=== PATIENT | female | born 1950 | race Caucasian/White ===

== ENCOUNTER 2017-01-01 09:09 | Emergency (ER) | payer BC, MEDICARE, OTHER ==
[~2017-01-01] VITALS: Ht 160 cm; Wt 86.4 kg
[2017-01-01 09:12] VITALS: TEMP 97.8
[2017-01-01 09:46] LABS: BASO # 0.2 (0.0-0.2); BASO % 1.9 % (0.0-2.0); EOS # 0.5 (0.0-0.7); EOS % 5.7 % (0-4.0); GRAN # 5.1 (1.4-6.5); GRAN % 64.9 % (42.2-75.2); HEMATOCRIT 39.5 % (37.0-47.0); HEMOGLOBIN 12.9 g/dl (12.5-16.0); LYMPH # 1.5 (1.2-3.4); LYMPH % 19.3 % (20.0-51.0); MEAN CELL VOLUME 86 fl (80.0-100.0); MEAN CORPUSCULAR HEMOGLOBIN 28 pg (27.0-31.0); MEAN CORPUSCULAR HGB CONC 33 g/dl (33.0-37.0); MEAN PLATELET VOLUME 10.8 fl (7.4-10.4); MONO # 0.6 (0.1-0.6); MONO % 7.7 % (1.7-9.3); PLATELET COUNT 262 K/mm3 (130-400); RED BLOOD COUNT 4.57 M/mm3 (4.10-5.30); REDCELL DISTRIBUTION WIDTH-CV 13.4 % (11.5-14.5); WHITE BLOOD COUNT 7.9 K/mm3 (4.8-10.8)
[2017-01-01 10:01] LABS: ADJUSTED CALCIUM 9.5 mg/dL (8.4-10.2); ALANINE AMINOTRANSFERASE 25 U/L (9-52); ALBUMIN 4.2 gm/dL (3.5-5.0); ALKALINE PHOSPHATASE 100 U/L (50-136); ANION GAP 12 mmol/L (7-16); BILIRUBIN,TOTAL 1.4 mg/dL (0.0-1.0); BLOOD UREA NITROGEN 25 mg/dL (7-17); CALCIUM 9.7 mg/dL (8.4-10.2); CARBON DIOXIDE 27 mmol/L (22-30); CHLORIDE 96 mmol/L (98-107); GLUCOSE 243 mg/dL (74-106); LIPASE 108 U/L (23-300); POTASSIUM 3.8 mmol/L (3.4-5.0); SODIUM 135 mmol/L (137-145); TOTAL PROTEIN 7.7 gm/dL (6.4-8.2)
[2017-01-01 10:13] LABS: B-TYPE NATRIURETIC PEPTIDE 250 pg/mL (0-125)
[2017-01-01 10:14] LABS: TROPONIN-I < 0.012 ng/mL (0.000-0.034)
[2017-01-01] MEDS ORDERED: ARAVA 20MG TABL20 MG PO (12:17)
[2017-01-01] MEDS ORDERED: ALDACTONE 25MG25 M1 PO (12:18)
[2017-01-01] MEDS ORDERED: ASPIRIN E.C. 8181 MG PO (12:18)
[2017-01-01] MEDS ORDERED: TOPROL XL200 MG PO (12:18)
[2017-01-01] MEDS ORDERED: PROTONIX 40MG T40 MG PO (12:18)
[2017-01-01] MEDS ORDERED: PRAVACHOL 40MG40 MG PO (12:18)
[2017-01-01] MEDS ORDERED: ZYRTEC 10MG10 MG PO (12:18)
[2017-01-01] MEDS ORDERED: JANUVIA50 MG PO (12:19)
[2017-01-01] MEDS ORDERED: NOVOLOG FLEX100 U/ML SQ (12:19)
[2017-01-01] MEDS ORDERED: AMARYL4 MG PO (12:19)
[2017-01-01] MEDS ORDERED: LANTUS SOLOS100 U/ML SQ (12:19)
[2017-01-01] MEDS ORDERED: ULTRAM 50MG TAB50 MG PO (12:20)
[2017-01-01] MEDS ORDERED: LASIX 20MG TABL20 MG PO (12:20)
[2017-01-01] MEDS ORDERED: MASON NATURAL2000 IU (12:20)
[2017-01-01] MEDS ORDERED: DITROPAN XL 5MG5 M1 PO (12:20)
[2017-01-01] MEDS ORDERED: NATURAL IRON65 MG (12:21)
[2017-01-01] MEDS ORDERED: EPA FISH OIL1 SGL PO (12:21)
[2017-01-01] MEDS ORDERED: MICARDIS HCT 121 TA1 PO (12:22)
[2017-01-01] MEDS ORDERED: NEXIUM 40MG40 MG PO (12:25)
[2017-01-01 14:57] VITALS: BP 146/69; PULSE 68
== END 2017-01-01 15:27 | disposition short-term general hospital (02) ==
LOC: COL.ER 09:09
PROVIDERS: Emergency Medicine
DX: I21.4 Non-ST elevation (NSTEMI) myocardial infarction (principal); E11.9 Type 2 diabetes mellitus without complications; I10 Essential (primary) hypertension; Z79.4 Long term (current) use of insulin
CPT/HCPCS: J1644; J2270; J2405

== ENCOUNTER → 2017-02-16 | Outpatient (CLI) | payer BC, MEDICARE, OTHER ==
[~2017-02-16] MED LIST: ALDACTONE 25MG25 M1 PO; AMARYL4 MG PO; ARAVA 20MG TABL20 MG PO; ASPIRIN E.C. 8181 MG PO; DITROPAN XL 5MG5 M1 PO; EPA FISH OIL1 SGL PO; JANUVIA50 MG PO; LANTUS SOLOS100 U/ML SQ; LASIX 20MG TABL20 MG PO; MASON NATURAL2000 IU; MICARDIS HCT 121 TA1 PO; NATURAL IRON65 MG; NEXIUM 40MG40 MG PO; NOVOLOG FLEX100 U/ML SQ; PRAVACHOL 40MG40 MG PO; PROTONIX 40MG T40 MG PO; TOPROL XL200 MG PO; ULTRAM 50MG TAB50 MG PO; ZYRTEC 10MG10 MG PO
[2017-02-16 10:29] LABS: BASO # 0.1 (0.0-0.2); BASO % 1.8 % (0.0-2.0); EOS # 0.2 (0.0-0.7); EOS % 3.2 % (0-4.0); GRAN # 5.5 (1.4-6.5); GRAN % 72.5 % (42.2-75.2); LYMPH # 0.9 (1.2-3.4); LYMPH % 11.6 % (20.0-51.0); MEAN CELL VOLUME 89 fl (80.0-100.0); MEAN CORPUSCULAR HGB CONC 31 g/dl (33.0-37.0); MEAN PLATELET VOLUME 10.6 fl (7.4-10.4); MONO # 0.8 (0.1-0.6); MONO % 10.4 % (1.7-9.3); PLATELET COUNT 279 K/mm3 (130-400); RED BLOOD COUNT 3.33 M/mm3 (4.10-5.30); WHITE BLOOD COUNT 7.6 K/mm3 (4.8-10.8)
[2017-02-16 10:30] LABS: HEMATOCRIT 29.5 % (37.0-47.0); MEAN CORPUSCULAR HEMOGLOBIN 27 pg (27.0-31.0)
[2017-02-16 10:43] LABS: ADJUSTED CALCIUM 9.2 mg/dL (8.4-10.2); ALBUMIN 3.3 gm/dL (3.5-5.0); BILIRUBIN,TOTAL 0.7 mg/dL (0.0-1.0); C-REACTIVE PROTEIN 3.6 mg/dL (0.0-0.9); CALCIUM 8.6 mg/dL (8.4-10.2); CREATININE, serum 1.96 mg/dL (0.52-1.25)
== END ==
LOC: ZCOL.LAB 10:14
PROVIDERS: Thoracic Surgery (Cardiothoracic Vascular Surgery)
DX: T81.4XXA Infection following a procedure, initial encounter (principal); E87.79 Other fluid overload

== ENCOUNTER → 2017-02-22 | Outpatient (CLI) | payer BC, MEDICARE, OTHER ==
[2017-02-22 12:36] LABS: BASO # 0.1 (0.0-0.2); BASO % 1.5 % (0.0-2.0); EOS # 0.7 (0.0-0.7); EOS % 9.3 % (0-4.0); GRAN # 4.4 (1.4-6.5); GRAN % 60.6 % (42.2-75.2); HEMATOCRIT 31.1 % (37.0-47.0); HEMOGLOBIN 9.3 g/dl (12.5-16.0); LYMPH # 1.4 (1.2-3.4); LYMPH % 18.5 % (20.0-51.0); MEAN CELL VOLUME 89 fl (80.0-100.0); MEAN CORPUSCULAR HEMOGLOBIN 26 pg (27.0-31.0); MEAN CORPUSCULAR HGB CONC 30 g/dl (33.0-37.0); MEAN PLATELET VOLUME 10.2 fl (7.4-10.4); MONO # 0.7 (0.1-0.6); MONO % 9.7 % (1.7-9.3); PLATELET COUNT 335 K/mm3 (130-400); RED BLOOD COUNT 3.51 M/mm3 (4.10-5.30); WHITE BLOOD COUNT 7.3 K/mm3 (4.8-10.8)
[2017-02-22 12:43] LABS: ADJUSTED CALCIUM 9.2 mg/dL (8.4-10.2); ALBUMIN 3.4 gm/dL (3.5-5.0); BILIRUBIN,TOTAL 0.6 mg/dL (0.0-1.0); C-REACTIVE PROTEIN 3.4 mg/dL (0.0-0.9); CALCIUM 8.7 mg/dL (8.4-10.2); CREATININE, serum 1.99 mg/dL (0.52-1.25); POTASSIUM 3.6 mmol/L (3.4-5.0); TOTAL PROTEIN 7.1 gm/dL (6.4-8.2)
== END ==
LOC: ZCOL.LAB 12:19
PROVIDERS: Thoracic Surgery (Cardiothoracic Vascular Surgery)
DX: T81.4XXA Infection following a procedure, initial encounter (principal); N17.9 Acute kidney failure, unspecified; I50.9 Heart failure, unspecified; E87.70 Fluid overload, unspecified; N18.9 Chronic kidney disease, unspecified; Z95.1 Presence of aortocoronary bypass graft

== ENCOUNTER → 2017-03-01 | Outpatient (CLI) | payer BC, MEDICARE, OTHER ==
[2017-03-01 12:21] LABS: BASO # 0.1 (0.0-0.2); BASO % 1.6 % (0.0-2.0); EOS # 0.5 (0.0-0.7); EOS % 7.2 % (0-4.0); GRAN # 4.6 (1.4-6.5); GRAN % 61.8 % (42.2-75.2); LYMPH # 1.3 (1.2-3.4); MEAN CELL VOLUME 87 fl (80.0-100.0); MEAN CORPUSCULAR HGB CONC 31 g/dl (33.0-37.0); MEAN PLATELET VOLUME 10.7 fl (7.4-10.4); MONO # 0.8 (0.1-0.6); PLATELET COUNT 283 K/mm3 (130-400); RED BLOOD COUNT 3.43 M/mm3 (4.10-5.30); WHITE BLOOD COUNT 7.4 K/mm3 (4.8-10.8)
[2017-03-01 12:22] LABS: HEMATOCRIT 29.8 % (37.0-47.0); HEMOGLOBIN 9.3 g/dl (12.5-16.0); MEAN CORPUSCULAR HEMOGLOBIN 27 pg (27.0-31.0)
[2017-03-01 12:32] LABS: ADJUSTED CALCIUM 9.4 mg/dL (8.4-10.2); ALBUMIN 3.3 gm/dL (3.5-5.0); BILIRUBIN,TOTAL 0.6 mg/dL (0.0-1.0); C-REACTIVE PROTEIN 5.4 mg/dL (0.0-0.9); CALCIUM 8.8 mg/dL (8.4-10.2); CREATININE, serum 1.67 mg/dL (0.52-1.25); POTASSIUM 3.4 mmol/L (3.4-5.0); TOTAL PROTEIN 6.9 gm/dL (6.4-8.2)
== END ==
LOC: ZCOL.LAB 12:13
PROVIDERS: Thoracic Surgery (Cardiothoracic Vascular Surgery)
DX: T81.4XXA Infection following a procedure, initial encounter (principal); N17.9 Acute kidney failure, unspecified; N18.9 Chronic kidney disease, unspecified; I50.9 Heart failure, unspecified; Z95.1 Presence of aortocoronary bypass graft

== ENCOUNTER → 2019-01-12 | Outpatient (CLI) | payer BC, MEDICARE, OTHER | LOC: COL.VAS 01-11 11:15 | DX: M54.2 Cervicalgia (principal) ==

== ENCOUNTER 2020-06-04 12:54 | Inpatient (IN) | payer BC, MEDICARE, OTHER ==
[~2020-06-04] VITALS: Ht 160 cm; Wt 75.1 kg
[2020-06-04 14:12] LABS: BASO # 0.1 (0.0-0.2); BASO % 0.7 % (0.0-2.0); EOS # 0.1 (0.0-0.7); EOS % 0.8 % (0-4.0); GRAN # 5.9 (1.4-6.5); GRAN % 82.4 % (42.2-75.2); HEMATOCRIT 37.8 % (37.0-47.0); HEMOGLOBIN 11.7 g/dl (12.5-16.0); LYMPH # 0.8 (1.2-3.4); LYMPH % 10.8 % (20.0-51.0); MEAN CELL VOLUME 88 fl (80.0-100.0); MEAN CORPUSCULAR HEMOGLOBIN 27 pg (27.0-31.0); MEAN CORPUSCULAR HGB CONC 31 g/dl (33.0-37.0); MONO # 0.4 (0.1-0.6); MONO % 4.9 % (1.7-9.3); PLATELET COUNT 335 K/mm3 (130-400); RED BLOOD COUNT 4.31 M/mm3 (4.10-5.30)
[2020-06-04 14:33] LABS: TROPONIN-I 0.029 ng/mL (0.000-0.035)
[2020-06-04 14:48] LABS: COLLECTION METHOD CLEAN CATCH
[2020-06-04 14:55] LABS: MUCOUS Present /lpf; PH 5 (5-8); SQUAMOUS EPITHELIAL 0-2 /hpf; URINE APPEARANCE Clear; URINE BACTERIA Rare /hpf; URINE BILIRUBIN Negative (NEGATIVE); URINE BLOOD 2+ (NEGATIVE); URINE COLOR Yellow; URINE GLUCOSE Negative (NEGATIVE); URINE KETONE Negative (NEGATIVE); URINE LEUKOCYTE ESTERASE Negative (NEGATIVE); URINE NITRATE Negative (NEGATIVE); URINE PROTEIN(semi-quant) 2+ (NEGATIVE); URINE UROBILINOGEN Negative (NEGATIVE)
[2020-06-04 15:47] LABS: BILIRUBIN,TOTAL 1.4 mg/dL (0.0-1.0); CALCIUM 9.6 mg/dL (8.4-10.2); CREATININE, serum 2.15 (0.52-1.25); POTASSIUM 3.7 mmol/L (3.4-5.0); TOTAL PROTEIN 8.4 gm/dL (6.4-8.2)
[2020-06-04 16:00] VITALS: BP 150/96; PULSE 87; TEMP 98.1
[2020-06-04] MEDS ORDERED: SYNTHROID0.05 MG/TA PO (16:01)
[2020-06-04] MEDS ORDERED: PROTONIX 40MG T40 MG PO (16:32)
[2020-06-04 18:12] VITALS: BP 150/96; PULSE 87; TEMP 98.1
--- NOTE | 2020-06-04 19:28 | NUR ---
Assessment completed, alert/oriented, vital signs stable, denies pain, reports cough/ no sputum observed and tesslon negra given, lungs CTA/ diminished LLL, she is on room air and O2 sats are WNL, heart RRR/SR on tele, sekou eduardo for elevated BNP with hx of CHF, she is sitting up eating supper, denies other needs
[2020-06-04 20:08] VITALS: BP 147/74; PULSE 87; TEMP 97.9
--- NOTE | 2020-06-04 21:30 | NUR ---
Patient assessed at this time. Alert and oriented x 4, and able to make needs known. Denies having pain and discomfort at this time. Peripheral INT to left AC. Denies SOB and dypsnea. On room air. Capillary refill less than 3 seconds. Non-tenting skin turgor. BSAx4. Abdomen soft and non-tender. 1+ edema BLE. Voices no questions, needs, or concerns at this time. Resting in bed with call light within reach.
[2020-06-05 00:04] VITALS: BP 153/79; PULSE 77; TEMP 97.5
[2020-06-05 02:47] VITALS: BP 130/66; PULSE 68; TEMP 97.6
--- NOTE | 2020-06-05 05:18 | NUR ---
Patient has denied having pain and discomfort this shift. Voices no questions, needs, or concerns at this time. Resting in bed with call light within reach.
[2020-06-05 09:00] VITALS: BP 128/78; PULSE 98; TEMP 98.7
--- NOTE | 2020-06-05 09:07 | NUR ---
PT IS SITTING UP IN RECLINER EATING BREAKFAST. PT STATES SHE IS GETTING CLAUSTROPHOBIC IN HER ROOM. THIS RN OPENED THE BLINDS, AND SHE STATES THAT IT FEELS A LOT BETTER. GAVE PATIENT MEDICATIONS, AND DID ASSESSMENT. ALL VSS. NO CONCERNS AT THIS TIME. CALL LIGHT WITHIN REACH.
[2020-06-05 09:17] LABS: HEMATOCRIT 39.9 % (37.0-47.0); HEMOGLOBIN 12.6 g/dl (12.5-16.0); MEAN CELL VOLUME 87 fl (80.0-100.0); MEAN CORPUSCULAR HEMOGLOBIN 27 pg (27.0-31.0); MEAN CORPUSCULAR HGB CONC 32 g/dl (33.0-37.0); MEAN PLATELET VOLUME 11.5 fl (7.4-10.4); PLATELET COUNT 335 K/mm3 (130-400); RED BLOOD COUNT 4.61 M/mm3 (4.10-5.30); REDCELL DISTRIBUTION WIDTH-CV 14.1 % (11.5-14.5)
[2020-06-05 09:29] LABS: ALBUMIN 4.2 gm/dL (3.5-5.0); BILIRUBIN,TOTAL 1.8 mg/dL (0.0-1.0); CALCIUM 9.8 mg/dL (8.4-10.2); CREATININE, serum 2.49 (0.52-1.25); POTASSIUM 3.3 mmol/L (3.4-5.0); TOTAL PROTEIN 8.6 gm/dL (6.4-8.2)
[2020-06-05 09:50] LABS: TROPONIN-I 0.049 ng/mL (0.000-0.035)
--- NOTE | 2020-06-05 11:22 | NUR ---
Chaplain randolph for patient while standing outside the door.
--- NOTE | 2020-06-05 12:00 | NUR ---
Consults called. Both Dr. Cook and Dr. Huffman have been notified, and are going to come see this patient today. Dr. Gee is currently at bedside to see the patient.
--- NOTE | 2020-06-05 13:08 | NUR ---
[facility] contacted patient by phone to complete intake. Patient lives alone in [place] and sees Dr. Burns for primary care. Patient obtains medications from [facility] with no difficulties. Patient has a cane and walker at home but does not use them normally. Patient reports independence with ADLS and plans to return home upon discharge. Patient reports she has DPOA-HC completed, however SW did not locate copy in EMR. Patient states it designates her son, Joel (ph#[phone]) and her sister. Patient reports Joel is her only child. ERIN collaborated with RNLilo who advised patient has been independent in her room. ERIN also contacted patient's son, Joel to review discharge plan. Joel's only concern was if patient was still infectious. ERIN will continue to follow.
[2020-06-05 13:15] VITALS: BP 132/84; PULSE 87; TEMP 97.9
[2020-06-05 14:35] LABS: URINE PROTEIN:CREAT RATIO 1.71 (0.00-0.14)
[2020-06-05 17:51] VITALS: BP 136/86; PULSE 90; TEMP 97.5
[2020-06-05 21:04] VITALS: BP 118/72; PULSE 78; TEMP 97.5
[2020-06-06 00:11] VITALS: BP 148/96; PULSE 75; TEMP 97.5
--- NOTE | 2020-06-06 03:53 | NUR ---
PT VERY PLEASANT AND COOPERATIVE. ALERT AND ORIENTATED X4. INT TO L AC FLUSHED WITH 5ML NS WITH NO DIFFICULTY. PT ON ROOM AIR WITH SATS AT 90-96%. BECOMES SHORT OF AIR WITH EXERTION. OCCASIONAL COUGH. TELE ON WITH SR. RECEIVES HEPARIN FOR VTE. ACCU CHECK AT HS WAS 123. REMAINS IN DROPLET ISOLATION FOR COVID. CALL LIGHT WITHIN REACH. WILL CONINUE TO MONITOR.
[2020-06-06 05:11] VITALS: BP 124/72; PULSE 74; TEMP 97.5
[2020-06-06 08:00] VITALS: BP 128/78; PULSE 86; TEMP 97.6
--- NOTE | 2020-06-06 08:00 | NUR ---
Patient laying in bed watching TV, A&Ox4. Denies SOB, only reports when taking a deep breath and coughing. VSS. IV CDI. Droplet precautions in place. No further needs expressed from the patient. Patient is hoping to go home today. Call light within reach
[2020-06-06 09:37] LABS: BASO # 0.1 (0.0-0.2); BASO % 0.9 % (0.0-2.0); EOS # 0.2 (0.0-0.7); EOS % 2.9 % (0-4.0); GRAN # 4.6 (1.4-6.5); GRAN % 66.3 % (42.2-75.2); HEMOGLOBIN 11.5 g/dl (12.5-16.0); LYMPH # 1.3 (1.2-3.4); LYMPH % 19.1 % (20.0-51.0); MEAN CELL VOLUME 86 fl (80.0-100.0); MEAN CORPUSCULAR HEMOGLOBIN 28 pg (27.0-31.0); MEAN CORPUSCULAR HGB CONC 32 g/dl (33.0-37.0); MEAN PLATELET VOLUME 10.8 fl (7.4-10.4); MONO # 0.7 (0.1-0.6); MONO % 10.1 % (1.7-9.3); PLATELET COUNT 402 K/mm3 (130-400); RED BLOOD COUNT 4.18 M/mm3 (4.10-5.30); REDCELL DISTRIBUTION WIDTH-CV 14.3 % (11.5-14.5)
[2020-06-06 09:46] LABS: CALCIUM 7.7 mg/dL (8.4-10.2); CREATININE, serum 2.42 (0.52-1.25); POTASSIUM 4.3 mmol/L (3.4-5.0)
[2020-06-06 12:24] VITALS: BP 136/72; PULSE 85; TEMP 97.8
[2020-06-06] MEDS ORDERED: LASIX 20MG TABL20 MG PO (12:38)
--- NOTE | 2020-06-06 13:45 | NUR ---
Patient taken by wheelchair to ER entrance, picking the patient up. Discharge paperwork reviewed with the patient. Patient verbalized an understanding to follow doctors orders and [facility] guidelines for covid. IV removed, tip intact, patient tolerated well. Gauze and coban applied. Discharge paperwork and personal belongings with the patient. No further needs expressed from the patient.
== END 2020-06-06 13:45 | disposition home or self-care (01) | DRG 177 ==
LOC: COL.ER 12:54 → PEDS 15:55 → COL.ER 15:55 → PEDS 06-06 01:49
PROVIDERS: Emergency Medicine; Hospitalist; Internal Medicine Nephrology; Nurse Practitioner Primary Care; Physician Assistant; ADMIT Student in an Organized Health Care Education/Training Program
DX: U07.1 COVID-19 (principal); J12.89 Other viral pneumonia; I21.A1 Myocardial infarction type 2; I50.23 Acute on chronic systolic (congestive) heart failure; I13.0 Hypertensive heart and chronic kidney disease with heart failure and stage 1 through stage 4 chronic kidney disease, or unspecified chronic kidney disease; N17.9 Acute kidney failure, unspecified; N18.4 Chronic kidney disease, stage 4 (severe); M06.9 Rheumatoid arthritis, unspecified; E03.9 Hypothyroidism, unspecified; J45.909 Unspecified asthma, uncomplicated; I25.10 Atherosclerotic heart disease of native coronary artery without angina pectoris; E11.21 Type 2 diabetes mellitus with diabetic nephropathy; E78.5 Hyperlipidemia, unspecified; K21.9 Gastro-esophageal reflux disease without esophagitis; D63.1 Anemia in chronic kidney disease; E11.22 Type 2 diabetes mellitus with diabetic chronic kidney disease; Z79.4 Long term (current) use of insulin; Z95.1 Presence of aortocoronary bypass graft; Z88.2 Allergy status to sulfonamides
CPT/HCPCS: 99222-AI; 99232-AI; 99239; J1644; J1815; J1940

== ENCOUNTER 2021-12-08 16:55 | Inpatient (IN) | payer MEDICARE, OTHER ==
[~2021-12-08] VITALS: Ht 160 cm; Wt 76.4 kg
[~2021-12-08 16:55] MED LIST changes: -DITROPAN 5MG TAB5 MG PO; -FLONASEALLERGY NS; -OMEGA-3 FISH1000 MG PO; -PROVENTIL0.09 MG/A1 IH; -REFRESH PLUS 00.4 M1 OP; -REPATHA SU140 MG/1 M SQ; -SINGULAIR 110 MG/TAB PO; -SYMMETREL100 MG PO; -VITAMIN B122500 MCG SL; -ZETIA 10MG TAB10 MG PO
[2021-12-08 17:07] VITALS: BP 157/79; PULSE 81; TEMP 98.2
[2021-12-08] MEDS ORDERED: FLONASEALLERGY NS (17:59)
[2021-12-08] MEDS ORDERED: REFRESH PLUS 00.4 M1 OP (18:00)
[2021-12-08] MEDS ORDERED: REPATHA SU140 MG/1 M SQ (18:01)
[2021-12-08] MEDS ORDERED: PROVENTIL0.09 MG/A1 IH (18:03)
[2021-12-08] MEDS ORDERED: VITAMIN B122500 MCG SL (18:04)
[2021-12-08] MEDS ORDERED: SINGULAIR 110 MG/TAB PO (18:05)
[2021-12-08] MEDS ORDERED: OMEGA-3 FISH1000 MG PO (18:06)
[2021-12-08] MEDS ORDERED: ZETIA 10MG TAB10 MG PO (18:06)
[2021-12-08] MEDS ORDERED: DITROPAN 5MG TAB5 MG PO (18:09)
--- NOTE | 2021-12-08 18:23 | NUR ---
Pt arrived to floor accompanied by family. Oriented to unit and all questions answered. AOx4. All vitals stable at this time. Will continue to monitor.
[2021-12-08 18:46] LABS: BASO # 0.2 K/mm3 (0.0-0.2); BASO % 1.4 % (0.0-2.0); EOS # 0.1 K/mm3 (0.0-0.7); GRAN # 10.3 K/mm3 (1.4-6.5); GRAN % 78.7 % (42.2-75.2); HEMOGLOBIN 10.5 g/dl (12.5-16.0); LYMPH # 1.5 K/mm3 (1.2-3.4); LYMPH % 11.4 % (20.0-51.0); MEAN CELL VOLUME 83 fl (80.0-100.0); MEAN CORPUSCULAR HEMOGLOBIN 26 pg (27-31); MEAN CORPUSCULAR HGB CONC 32 g/dl (33.0-37.0); MEAN PLATELET VOLUME 10.7 fl (7.4-10.4); MONO # 0.9 K/mm3 (0.1-0.6); MONO % 7.1 % (1.7-9.3); PLATELET COUNT 327 K/mm3 (130-400); RED BLOOD COUNT 3.97 M/mm3 (4.10-5.30); REDCELL DISTRIBUTION WIDTH-CV 14.8 % (11.5-14.5)
[2021-12-08 18:51] LABS: HEMATOCRIT 33.1 % (37.0-47.0)
[2021-12-08 19:06] LABS: BILIRUBIN,TOTAL 1.3 mg/dL (0.2-1.2); CALCIUM 9.2 mg/dL (8.4-10.2); CREATININE, serum 2.79 mg/dL (0.57-1.11); MAGNESIUM 2.1 mg/dL (1.6-2.6); POTASSIUM 3.5 mmol/L (3.5-4.5); TOTAL PROTEIN 7.5 gm/dL (6.2-8.1)
[2021-12-08 19:50] VITALS: BP 155/84; PULSE 73; TEMP 97.7
[2021-12-08 19:59] LABS: PARTIAL THROMBOPLASTIN TIME 31.5 SECONDS (26.0-37.0)
[2021-12-08 20:20] LABS: COLLECTION METHOD CLEAN CATCH
[2021-12-08 20:26] LABS: MUCOUS Present (NOT PRESENT); PH 5 (5-8); URINE APPEARANCE Hazy (CLEAR/HAZY); URINE BACTERIA Rare /hpf (NONE SEEN); URINE BILIRUBIN Negative (NEGATIVE); URINE BLOOD 2+ (NEGATIVE); URINE COLOR Yellow (YELLOW); URINE GLUCOSE Negative (NEGATIVE); URINE KETONE Negative (NEGATIVE); URINE LEUKOCYTE ESTERASE Negative (NEGATIVE); URINE NITRATE Negative (NEGATIVE); URINE PROTEIN(semi-quant) 2+ (NEGATIVE); URINE RBC 0-2 /hpf (0-2); URINE UROBILINOGEN Negative (NEGATIVE)
[2021-12-09] VITALS (8 sets, daily range): BP systolic 118–158; BP diastolic 63–79; PULSE 41–88; TEMP 97.5–98
--- NOTE | 2021-12-09 00:45 | NUR ---
Report received, pt eating her evening meal at that time. Assessment completed, pt is A&Ox4. Orders received and medications admininstered per eMAR. Fluid restriction in place of 1500ml. Pt has no complaints of main thus far this shift. All other needs met at this time, call light within reach.
--- NOTE | 2021-12-09 00:49 | NUR ---
Critical troponin level of 2.826 called in by lab at 1930. Hospitalist notified. Secondary critical troponin level of 2.886 called in by lab at 2152. Hospitalist notified again.
[2021-12-09 04:16] LABS: BASO # 0.2 K/mm3 (0.0-0.2); BASO % 1.5 % (0.0-2.0); EOS # 0.2 K/mm3 (0.0-0.7); GRAN # 8.2 K/mm3 (1.4-6.5); GRAN % 74.4 % (42.2-75.2); HEMOGLOBIN 10.1 g/dl (12.5-16.0); LYMPH # 1.6 K/mm3 (1.2-3.4); LYMPH % 14.2 % (20.0-51.0); MEAN CELL VOLUME 84 fl (80.0-100.0); MEAN CORPUSCULAR HEMOGLOBIN 26 pg (27-31); MEAN CORPUSCULAR HGB CONC 32 g/dl (33.0-37.0); MEAN PLATELET VOLUME 10.7 fl (7.4-10.4); MONO # 0.8 K/mm3 (0.1-0.6); MONO % 7.4 % (1.7-9.3); PLATELET COUNT 289 K/mm3 (130-400); RED BLOOD COUNT 3.83 M/mm3 (4.10-5.30); REDCELL DISTRIBUTION WIDTH-CV 14.9 % (11.5-14.5)
[2021-12-09 04:20] LABS: HEMATOCRIT 32.1 % (37.0-47.0)
[2021-12-09 04:28] LABS: CREATININE, serum 2.77 mg/dL (0.57-1.11); POTASSIUM 3.5 mmol/L (3.5-4.5)
--- NOTE | 2021-12-09 05:36 | NUR ---
Pts 0400 glucose reading was 63, hypoglycemic protocol was initiated. Pt received medication per EMAR. Blood glucose was taken 15 minutes after dextrose administration and was brought up to 139. Pt has no complaints at this time and denies pain. Call light within reach.
--- NOTE | 2021-12-09 09:10 | NUR ---
PT SITTING UP IN BED ON ROOM AIT. PT STATES NO SOB OR PAIN AT THIS TIME. "I JUST WANT TO EAT SOMETHING." PT REMAINS NPO INCASE ANY PROCEDURES NEED TO BE DONE. PT VOICES UNDERSTANDING. PT STATES NO OTHER NEEDS/CONCERNS AT THIS TIME. "I GUESS ILL JUST WAIT UNTIL THEY FIGURE OUT WHAT THEY ARE GOING TO DO WITH ME." CALL LIGHT IS WITHIN REACH.
--- NOTE | 2021-12-09 10:10 | NUR ---
Job Interviewer met with patient to discuss discharge planning. Patient lives in [place] and sees Dr. Burns for primary care. Patient obtains medications from [facility] or [facility]. Patient does not normally use DME however she advised she recently purchased a cane. Patient reports independence with ADLS and plans to return home at time of discharge. Patient reports her DPOA-HC is her son, Joel (ph#[phone]). Discharge Plan: Home
[2021-12-09] MEDS ORDERED: SYMMETREL100 MG PO (13:29)
--- NOTE | 2021-12-09 13:30 | NUR ---
PT OFF FLOOR FOR SCAN
[2021-12-09] MEDS ORDERED: LASIX 20MG TABL20 MG PO (13:42)
[2021-12-09] MEDS ORDERED: ASPIRIN E.C. 8181 MG PO (13:46)
--- NOTE | 2021-12-09 14:42 | NUR ---
PT RETURNED TO ROOM
--- NOTE | 2021-12-09 19:11 | NUR ---
PT SITTING UP IN BEDSIDE CHAIR. PT STATES NO PAIN OR SOB AT THIS TIME. NO CONCERNS/NEEDS VOICED AT THIS TIME. CALL LIGHT IS WITHIN REACH.
--- NOTE | 2021-12-09 21:35 | NUR ---
Patient assessed around 1999. Alert and oriented, and able to make needs known. Denies having pain and discomfort. Did complain of dry cough, and given PRN Robitussin as ordered. PICC to [facility], with Heparin drip running per orders. Rechecka t 2200. Reports some SOB with exertion. LS CTA in upper lobes, diminished in lower. HRR. Telemetry in place. BSAx4. 1+ edema BLE. Voices no questions, needs, or concerns at this time. In bed with call light within reach. Bed alarm on.
[2021-12-10 04:37] VITALS: BP 137/75; PULSE 60; TEMP 97.6
[2021-12-10 05:21] LABS: BASO # 0.2 K/mm3 (0.0-0.2); BASO % 1.7 % (0.0-2.0); EOS # 0.4 K/mm3 (0.0-0.7); EOS % 3.5 % (0.0-4.0); GRAN # 7.4 K/mm3 (1.4-6.5); HEMOGLOBIN 10.6 g/dl (12.5-16.0); LYMPH # 1.4 K/mm3 (1.2-3.4); LYMPH % 14.1 % (20.0-51.0); MEAN CELL VOLUME 84 fl (80.0-100.0); MEAN CORPUSCULAR HEMOGLOBIN 26 pg (27-31); MEAN CORPUSCULAR HGB CONC 31 g/dl (33.0-37.0); MEAN PLATELET VOLUME 10.9 fl (7.4-10.4); MONO # 0.7 K/mm3 (0.1-0.6); MONO % 7.3 % (1.7-9.3); PLATELET COUNT 312 K/mm3 (130-400); RED BLOOD COUNT 4.04 M/mm3 (4.10-5.30); REDCELL DISTRIBUTION WIDTH-CV 14.9 % (11.5-14.5)
--- NOTE | 2021-12-10 05:35 | NUR ---
Continues on Heparin drip per orders. Dosing changed twice this shift per protocol. Recheck HepXa at 1130. Denies having pain and discomfort. Voices no questions, needs, or concerns at this time. In bed with call light within reach.
[2021-12-10 05:42] LABS: CREATININE, serum 2.87 mg/dL (0.57-1.11); MAGNESIUM 1.9 mg/dL (1.6-2.6); POTASSIUM 3.5 mmol/L (3.5-4.5)
[2021-12-10 05:50] LABS: TROPONIN-I 2.115 ng/mL (0.00-0.033)
[2021-12-10 07:24] VITALS: BP 133/68; PULSE 57; TEMP 97.6
[2021-12-10 11:34] VITALS: BP 125/59; PULSE 63; TEMP 97.8
[2021-12-10 15:18] VITALS: BP 145/68; PULSE 68; TEMP 97.5
[2021-12-10 19:54] VITALS: BP 118/70; PULSE 69; TEMP 97.7
--- NOTE | 2021-12-10 20:57 | NUR ---
PREVIOUS NURSE DID NOT CHANGE THE HEP XA VALUE IN THE COMPUTER WHEN THEY CHANGED IT ON THE PUMP, SO THE CORRECT VALUE RUNNING WAS NOT CORRECT IN THE COMPUTER. THE PUMP WAS RUNNING AT 11.5 UNITS/HR, BUT THE COMPUTER VALUE WAS NEVER CHANGED AND LEFT AT 12.5 UNITS/HR. I VERIFIED THE LAB VALUES AND CHANGED THE RATE BASED OFF OF THE HEP XA AND THE 11.5 VALUE THAT WAS RUNNING. THE HEP XA WAS TO BE INCREASED BY 1.5 UNITS/HR, SO INCREASED THE RATE TO 13 UNITS/HR WITH THE SUPERVISION AND SECOND NURSE VERIFICATION OF THE CHARGE NURSE.
[2021-12-10 23:56] VITALS: BP 150/73; PULSE 63; TEMP 97.8
[2021-12-11] VITALS (11 sets, daily range): BP systolic 125–165; BP diastolic 64–90; PULSE 57–70; TEMP 97.4–97.6
--- NOTE | 2021-12-11 02:14 | NUR ---
Pt alert and oriented, follows commands, resting quietly. Denies chest pain/SOB. Denies abdominal pain. Afebrile. Enforcing NPO 0000. secured entrance monitor remains on. Shift assessment performed. Medications administered per orders and education provided. VS stable. Pt on room air. BP stable. 1+ BLE edema noted. No significant skin issues. Lung sounds clear and diminished bilaterally. No crackles noted. Hep gtt continuing, currently at 13 ml/hr. See previous note regarding issue with rate not being changed in computer. Next Hep Xa at 0250. Will continue to assess rate. Pt currently in NSR. Tolerating PO, now NPO since 0000. FSBS 113. Pt does not report any questions at this time, will continue to monitor.
--- NOTE | 2021-12-11 04:50 | NUR ---
No adverse events overnight. Pt alert and oriented. Denies chest pain/SOB. BLE edema remains 1+. VS stable. Pt on room air. Heparin gtt continuing, now at 12 ml/hr. Pt NPO since 0000. PICC line in CARLA clean/dry/intact. HR NSR. Continuing 1500 FR and closely monitoring I&O. Pt has had adequate urine output overnight. Pt does not report any questions at this time, chilango continue to monitor.
[2021-12-11 11:04] LABS: BASO # 0.1 K/mm3 (0.0-0.2); BASO % 1.4 % (0.0-2.0); EOS # 0.2 K/mm3 (0.0-0.7); EOS % 2.2 % (0.0-4.0); GRAN # 8.2 K/mm3 (1.4-6.5); GRAN % 78.6 % (42.2-75.2); HEMOGLOBIN 11.5 g/dl (12.5-16.0); LYMPH # 1.2 K/mm3 (1.2-3.4); LYMPH % 11.3 % (20.0-51.0); MEAN CELL VOLUME 83 fl (80.0-100.0); MEAN CORPUSCULAR HEMOGLOBIN 26 pg (27-31); MEAN CORPUSCULAR HGB CONC 32 g/dl (33.0-37.0); MEAN PLATELET VOLUME 10.6 fl (7.4-10.4); MONO # 0.6 K/mm3 (0.1-0.6); MONO % 6.2 % (1.7-9.3); PLATELET COUNT 333 K/mm3 (130-400); RED BLOOD COUNT 4.36 M/mm3 (4.10-5.30); REDCELL DISTRIBUTION WIDTH-CV 14.9 % (11.5-14.5)
[2021-12-11 11:17] LABS: CALCIUM 9.8 mg/dL (8.4-10.2); CREATININE, serum 3.37 mg/dL (0.57-1.11); POTASSIUM 3.6 mmol/L (3.5-4.5)
--- NOTE | 2021-12-11 14:39 | NUR ---
PT HAD LEXISCAN THIS AM. UNK RESULTS YET. PT DENIES SOA OR CHEST PAIN, DID RETURN W HEADACHE THIS AM. HEP GTT CONT AT 11ML RECHECK HEP XA 1630. NEEDS MET.
--- NOTE | 2021-12-11 16:22 | NUR ---
PT UPDATED ON POC, JAVIER NEGATIVE. DR STEPHEN STATES CONT THE HEPARIN SHE HAS HAD A HEART ATTACK IN PAST. SHE WILL PLACE ORDER WHEN READY TO DC. PT V/U OF CARE.
--- NOTE | 2021-12-11 18:13 | NUR ---
No change w heparin last draw. hep xa 0.31- 1st goal met.
--- NOTE | 2021-12-12 02:45 | NUR ---
Pt alert and oriented, resting quietly. Denies chest pain/SOB. 1+ BLE noted. Pt up to void independently. Heparin gtt continuining. Hit second therapeutic goal, will recheck value at 0600. Shift assessment performed. Medications administered per orders and education provided. VS stable. FSBS 210. Room air. No significant skin issues noted. Breath sounds clear and diminished. Enforcing 1500 FR and AHA diet. Pt tolerating PO. Denies nausea/vomiting. Pt does not report any questions at this time, will continue to monitor.
[2021-12-12 04:26] VITALS: BP 129/75; PULSE 55; TEMP 97.4
--- NOTE | 2021-12-12 04:39 | NUR ---
No adverse events overnight. Pt remains alert and oriented, resting at this time. Currently denies chest pain/SOB. Lungs remain diminished with no crackles. BLE remains 1+. VS stable, on room air. Afebrile. Heparin gtt continues. Pt has met second goal rate. Will reassess Hep Xa at 0600. Pt up to void overnight. Pt does not report any questions at this time, will continue to monitor.
[2021-12-12 06:46] LABS: CALCIUM 9.1 mg/dL (8.4-10.2); CREATININE, serum 3.19 mg/dL (0.57-1.11); POTASSIUM 3.4 mmol/L (3.5-4.5)
[2021-12-12 07:21] VITALS: BP 122/84; PULSE 57; TEMP 97.5
--- NOTE | 2021-12-12 09:45 | NUR ---
The patient is to tentatively discharge back home today, 12/12. ERIN met with the patient and presented and read the IM form outloud to her. The patient verbalized understanding and of agreement to discharge today. She signed the form and ERIN provided her with a copy. She had no concerns for SW. No additional needs at this time.
[2021-12-12] MEDS ORDERED: LASIX 20MG TABL20 MG PO (09:59)
--- NOTE | 2021-12-12 10:38 | NUR ---
Reviewed education for chronic heart failure. Reviewed [facility] CHF educational booklet, with emphasis on daily weights, obtaining dry weights, monitoring for edema, shortness of breath, decreased endurance, or feeling full when eating less. Reviewed importance of medication compliance with all prescribed medications and when to call your medical provider (CHF Zones). Patient verbalized understanding. Patient s EF is 15-20% which doeS qualify for Cardiac Rehab. DISCUSSED REQUESTING REFERRAL FROM DR JONES [place] [facility] [place].
[2021-12-12 11:29] VITALS: BP 129/83; PULSE 58; TEMP 97.6
[2021-12-12 15:58] VITALS: BP 139/64; PULSE 60; TEMP 97.8
--- NOTE | 2021-12-12 18:41 | NUR ---
PT VSS, ORIENT AND ALERT X3, PICC LINE REMOVED, TIP INTACT, PRESSURE APPLIED TO SITE, EDUCATED ON CARE OF THE SITE, ESCORTED OUT OF THE UNIT WENT HOME IN COMPANY OF A RELATIVE.
== END 2021-12-12 16:30 | disposition home or self-care (01) | DRG 280 ==
LOC: MEDICAL 16:55
PROVIDERS: Internal Medicine; Student in an Organized Health Care Education/Training Program; ADMIT Student in an Organized Health Care Education/Training Program
PROC: 02HV33Z Insertion of Infusion Device into Superior Vena Cava, Percutaneous Approach (ICD-10-PCS; principal; 2021-12-09)
DX: I13.0 Hypertensive heart and chronic kidney disease with heart failure and stage 1 through stage 4 chronic kidney disease, or unspecified chronic kidney disease (principal); I21.4 Non-ST elevation (NSTEMI) myocardial infarction; I50.23 Acute on chronic systolic (congestive) heart failure; N18.4 Chronic kidney disease, stage 4 (severe); E78.5 Hyperlipidemia, unspecified; I25.10 Atherosclerotic heart disease of native coronary artery without angina pectoris; K21.9 Gastro-esophageal reflux disease without esophagitis; E03.9 Hypothyroidism, unspecified; Z20.822 Contact with and (suspected) exposure to COVID-19; M06.9 Rheumatoid arthritis, unspecified; I48.91 Unspecified atrial fibrillation; D64.9 Anemia, unspecified; J45.909 Unspecified asthma, uncomplicated; D72.829 Elevated white blood cell count, unspecified; E11.22 Type 2 diabetes mellitus with diabetic chronic kidney disease; E11.649 Type 2 diabetes mellitus with hypoglycemia without coma; E53.8 Deficiency of other specified B group vitamins; Z86.16 Personal history of COVID-19; Z23 Encounter for immunization; Z90.89 Acquired absence of other organs; Z88.2 Allergy status to sulfonamides; Z88.8 Allergy status to other drugs, medicaments and biological substances; Z79.890 Hormone replacement therapy; Z79.4 Long term (current) use of insulin; Z79.82 Long term (current) use of aspirin; Z95.1 Presence of aortocoronary bypass graft
CPT/HCPCS: A9500; A9540; A9567; C1751; C1892; J1644; J1815; J1940; J2785

== ENCOUNTER → 2021-12-08 | Outpatient (CLI) | payer MEDICARE, OTHER ==
[~2021-12-08] MED LIST changes: +DITROPAN 5MG TAB5 MG PO; +FLONASEALLERGY NS; -MASON NATURAL2000 IU; +OMEGA-3 FISH1000 MG PO; +PROVENTIL0.09 MG/A1 IH; +REFRESH PLUS 00.4 M1 OP; +REPATHA SU140 MG/1 M SQ; +SINGULAIR 110 MG/TAB PO; +SYMMETREL100 MG PO; +SYNTHROID0.05 MG/TA PO; +TOPROL XL100 MG PO; -TOPROL XL200 MG PO; +VITAMIN B122500 MCG SL; +VITAMIN D31000 IU PO; +ZETIA 10MG TAB10 MG PO
== END ==
LOC: COL.LAB 14:15
DX: I50.9 Heart failure, unspecified (principal)

== ENCOUNTER 2022-02-19 21:11 | Emergency (ER) | payer MEDICARE, OTHER ==
[~2022-02-19] VITALS: Ht 160 cm; Wt 77.7 kg
[~2022-02-19 21:11] MED LIST changes: +DITROPAN 5MG TAB5 MG PO; +FLONASEALLERGY NS; +OMEGA-3 FISH1000 MG PO; +PROVENTIL0.09 MG/A1 IH; +REFRESH PLUS 00.4 M1 OP; +REPATHA SU140 MG/1 M SQ; +SINGULAIR 110 MG/TAB PO; +SYMMETREL100 MG PO; +VITAMIN B122500 MCG SL; +ZETIA 10MG TAB10 MG PO
[2022-02-19 21:16] VITALS: TEMP 97.3
[2022-02-19 21:55] LABS: BASO # 0.1 K/mm3 (0.0-0.2); BASO % 0.6 % (0.0-2.0); EOS % 0.1 % (0.0-4.0); GRAN # 12.2 K/mm3 (1.4-6.5); GRAN % 81.8 % (42.2-75.2); HEMATOCRIT 41.2 % (37.0-47.0); HEMOGLOBIN 13.6 g/dl (12.5-16.0); LYMPH # 1.3 K/mm3 (1.2-3.4); LYMPH % 8.7 % (20.0-51.0); MEAN CELL VOLUME 84 fl (80.0-100.0); MEAN CORPUSCULAR HEMOGLOBIN 28 pg (27-31); MEAN CORPUSCULAR HGB CONC 33 g/dl (33.0-37.0); MEAN PLATELET VOLUME 11.1 fl (7.4-10.4); MONO # 1.2 K/mm3 (0.1-0.6); MONO % 8.2 % (1.7-9.3); PLATELET COUNT 286 K/mm3 (130-400); REDCELL DISTRIBUTION WIDTH-CV 14.4 % (11.5-14.5)
[2022-02-19 22:08] LABS: ALBUMIN 3.9 gm/dL (3.4-4.8); BILIRUBIN,TOTAL 1.6 mg/dL (0.2-1.2); CALCIUM 10.5 mg/dL (8.4-10.2); CREATININE, serum 4.14 mg/dL (0.57-1.11); POTASSIUM 4.1 mmol/L (3.5-4.5); TOTAL PROTEIN 7.6 gm/dL (6.2-8.1)
[2022-02-19 23:37] VITALS: BP 146/68; PULSE 70
== END 2022-02-19 23:37 | disposition home or self-care (01) ==
LOC: COL.ER 21:11
PROVIDERS: Personal Emergency Response Attendant
DX: E11.649 Type 2 diabetes mellitus with hypoglycemia without coma (principal); E11.22 Type 2 diabetes mellitus with diabetic chronic kidney disease; N18.9 Chronic kidney disease, unspecified
CPT/HCPCS: J7050

== ENCOUNTER 2022-07-10 17:25 | Emergency (ER) | payer MEDICARE, OTHER ==
[~2022-07-10] VITALS: Ht 160 cm; Wt 67.7 kg
[~2022-07-10 17:25] MED LIST changes: +AMOXICILLIN 8751 TAB PO; +CELEXA10 MG PO; +GLUCAGEN1 MG IM; +HEPARIN SOD5000 U/ML SQ; +K-DUR20 MEQ PO; +LEVEMIR100 U/ML SQ; +NOVOLOG 100U100 U/M1 SQ; +SENNA-S 50 MG-81 TAB PO
[2022-07-10 17:35] VITALS: TEMP 97.5
[2022-07-10 21:31] LABS: BASO # 0.2 K/mm3 (0.0-0.2); BASO % 1.5 % (0.0-2.0); EOS # 0.4 K/mm3 (0.0-0.7); EOS % 3.8 % (0.0-4.0); GRAN # 7.3 K/mm3 (1.4-6.5); GRAN % 69.1 % (42.2-75.2); HEMOGLOBIN 11.2 g/dl (12.5-16.0); LYMPH # 1.4 K/mm3 (1.2-3.4); LYMPH % 13.6 % (20.0-51.0); MEAN CELL VOLUME 90 fl (80.0-100.0); MEAN CORPUSCULAR HEMOGLOBIN 29 pg (27-31); MEAN CORPUSCULAR HGB CONC 33 g/dl (33.0-37.0); MEAN PLATELET VOLUME 10.5 fl (7.4-10.4); MONO # 1.2 K/mm3 (0.1-0.6); MONO % 11.3 % (1.7-9.3); PLATELET COUNT 329 K/mm3 (130-400); RED BLOOD COUNT 3.82 M/mm3 (4.10-5.30); REDCELL DISTRIBUTION WIDTH-CV 17.3 % (11.5-14.5)
[2022-07-10 21:32] LABS: HEMATOCRIT 34.3 % (37.0-47.0)
[2022-07-10] MEDS ORDERED: CIPRO 500MG TA500 MG PO (22:30)
[2022-07-10 22:42] VITALS: BP 164/74; PULSE 69
[2022-07-17] MEDS ORDERED: TYLENOL 325MG325 MG PO (09:23)
[2022-07-17] MEDS ORDERED: ATHLETE'S FOOT1% TP (09:26)
[2022-07-17] MEDS ORDERED: LASIX 80MG TABL80 MG PO (09:28)
[2022-07-17] MEDS ORDERED: PAMELOR 10MG10 MG PO (09:31)
[2022-07-17] MEDS ORDERED: K-DUR20 MEQ PO (09:36)
[2022-07-17] MEDS ORDERED: NORCO 325 MG-51 TAB PO ×3 (09:39→09:41)
== END 2022-07-10 22:39 | disposition home or self-care (01) ==
LOC: COL.ER 17:25
PROVIDERS: Physician Assistant
DX: L03.031 Cellulitis of right toe (principal); E11.9 Type 2 diabetes mellitus without complications; Z88.2 Allergy status to sulfonamides; Z86.16 Personal history of COVID-19

== ENCOUNTER → 2022-08-05 | Outpatient (CLI) | payer MEDICARE, OTHER ==
[~2022-08-05] MED LIST changes: +ATHLETE'S FOOT1% TP; +CIPRO 500MG TA500 MG PO; +LASIX 80MG TABL80 MG PO; +NORCO 325 MG-51 TAB PO; +PAMELOR 10MG10 MG PO; +TYLENOL 325MG325 MG PO
== END ==
LOC: MHCPAIN 14:20
DX: G20 Parkinson's disease (principal); R29.6 Repeated falls; R41.3 Other amnesia
CPT/HCPCS: G0463